=== PATIENT | female | born 1940 | race American Indian/Alaskan Native ===

== ENCOUNTER 2018-12-28 12:33 | Emergency (ER) | payer MEDICARE ==
--- NOTE | 2018-12-28 13:25 | Event Note ---
ED Screening Note Date of service: 12/28/18 Time: 13:20 ED Screening Note: This is a 78 y.o. F. that presents to the ER for combative behavior. Patient peggyece states she received a text this morning around 0400 from her personal shelter because she was combative and confused. PMH short term memory loss, subarachnoid hemorrhage with shunt, depression, HLD Currently taking antibiotics for a UTI. Patient niece states she is taking aricept but never diagnosed with alzheimer's. States the family is at a loss because they have changed facilities 5 times in 1 year. The personal care facility states she can't return because they can't take care of her. This initial assessment/diagnostic orders/clinical plan/treatment(s) is/are subject to change based on patients health status, clinical progression and re- assessment by fellow clinical providers in the ED. Further treatment and workup at subsequent clinical providers discretion. Patient/guardian urged not to elope from the ED as their condition may be serious if not clinically assessed and managed. Initial orders include: Labs
[2018-12-28 13:56] LABS: Basophils % (Auto) 0.3 % (0.0-1.8); Eosinophils # (Auto) 0.1 K/mm3 (0.0-0.4); Eosinophils % (Auto) 1.9 % (0.0-4.3); Hemoglobin 11.4 gm/dl (10.1-14.3); Lymphocytes # (Auto) 1.6 K/mm3 (1.2-5.4); Lymphocytes % (Auto) 33.8 % (13.4-35.0); Mean Corpuscular HGB Conc 33 % (30-34); Mean Corpuscular Volume 92 fl (79-97); Monocytes # (Auto) 0.7 K/mm3 (0.0-0.8); Monocytes % (Auto) 13.4 % (0.0-7.3); Platelet Count 176 K/mm3 (140-440); Red Blood Count 3.82 M/mm3 (3.65-5.03); Red Cell Distribution Width 14.6 % (13.2-15.2)
[2018-12-28 14:10] LABS: BUN/Creatinine Ratio 13; Blood Urea Nitrogen 12 mg/dL (7-17); Calcium 8.9 mg/dL (8.4-10.2); Hemolysis Index 3
[2018-12-28 14:28] LABS: Creatine Kinase MB 1.7 ng/mL (0.0-4.0)
[2018-12-28 14:29] LABS: Alanine Aminotransferase 11 units/L (7-56); Albumin 4.3 g/dL (3.9-5)
[2018-12-28 14:30] LABS: Bilirubin,Direct < 0.2 mg/dL (0-0.2)
--- NOTE | 2018-12-28 15:26 | Cat Scan Report ---
CT HEAD WITHOUT CONTRAST INDICATION / CLINICAL INFORMATION: Aberrant behavior. FARM HELPER shunt patient.. TECHNIQUE: All CT scans at this location are performed using CT dose reduction for ALARA by means of automated e xposure control. COMPARISON: None available. FINDINGS: HEMORRHAGE: No evidence of intracranial hemorrhage or extra-axial fluid collection. EXTRA-AXIAL SPACES: Cortical sulci, sylvian fissures and basilar cisterns have an unremarkable appear ance. VENTRICULAR SYSTEM: The ventricular system is of normal size and configuration given the patient's ag e of 78 years. A right-sided parietal ventriculoperitoneal shunt catheter is demonstrated. The cathet er enters the posterior body of the right lateral ventricle and terminates with tip just anterior to the frontal horn of the right lateral ventricle. There is no indication of hydrocephalus. There is no evidence of shunt catheter malfunction. CEREBRAL PARENCHYMA: There is an area of encephalomalacia in the right parietal region. This may refl ect the sequelae of remote infarction or other old brain injury. The ventriculoperitoneal shunt sierra ter traverses this region. No additional areas of abnormal brain parenchymal attenuation are identifi ed. A small dystrophic calcification is observed in the right frontal lobe surrounded by small area o f encephalomalacia reflecting sequelae of remote brain injury. MIDLINE SHIFT OR HERNIATION: There is no mass effect. CEREBELLUM / BRAINSTEM: Brainstem and cerebellum have an unremarkable appearance. INTRACRANIAL VESSELS: Calcified atherosclerotic plaque is seen along the course of the cavernous segm ents of both internal carotid arteries. ORBITS: visualized portions of the orbits have an unremarkable appearance. SOFT TISSUES of HEAD: No significant abnormality. CALVARIUM: There is a small jovanna hole in the posterior parietal region on the right secondary to FARM HELPER s malagon catheter. Evaluation of bone windows reveals no additional abnormalities. PARANASAL SINUSES / MASTOID AIR CELLS: Paranasal sinuses are free from inflammatory mucosal disease. Mastoid air cells have an unremarkable appearance.. IMPRESSION: 1. Right parietal ventriculoperitoneal shunt catheter in satisfactory position. No indication of shun t catheter malfunction. No evidence of hydrocephalus. 2. 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 3. No acute intracranial abnormality. Signer Name: Augusto العراقي MD Signed: 12/28/2018 3:21 PM Workstation Name: [facility] [email or web address]
[2018-12-28] MEDS ORDERED: POTASSIUM CHLORIDE ER 20 MEQ TAB PO ONE (16:14)
--- NOTE | 2018-12-28 16:14 | Emergency Department Report ---
ED Psych HPI - General Chief Complaint: Psych Stated Complaint: JACK BAUGH Time Seen by Provider: 12/28/18 13:20 Source: patient Mode of arrival: Ambulatory - History of Present Illness Initial Comments: [id number] female who is brought in by family members because she has had err atic behavior and her assisted living situation. The patient was living with the daughter and her behavior became to have recurrent for her to stay with them particularly unmonitored. The daughter had a friend that had a longterm. The patient was transferred to the longterm. However this week she started wandering going into the street and telling police that somebody had stolen her TV. The daughter tells me that the patient has had a recent evaluation at the [place] facility but no CT scan of her head. She has pre-existing ELECTRIC CRANE OPERATOR shunt which was placed after she had a subarachnoid hemorrhage. The daughter states that the patient has intermittent erratic behavior. She describes paranoid ideation. She does not describe hallucinosis. Patient is now wandering intermittently. However she states as she was at [place] the patient is now contained and behaving reasonably. She has never been hospitalized in a psychiatric facility. She has been diagnosed with dementia and depression. She's been previously placed on Zoloft, trazodone and doxepin. She has no specific complaints at this time. She is aware of her surroundings. Complaint: other -: week(s) Associated Psychiatric Symptoms: delusions, other History of same: Yes Quality: intermittent Improves With: none Worsens With: none Context: other Associated Symptoms: denies other symptoms Treatments Prior to Arrival: none - Related Data Allergies Allergy/AdvReac Type Severity Reaction Status Date / Time No Known Allergies Allergy Verified 12/28/18 13:26 ED Review of Systems ROS: Stated complaint: JACK BAUGH Other details as noted in HPI Constitutional: denies: chills, fever Eyes: denies: eye pain, eye discharge, vision change ENT: denies: ear pain, throat pain Respiratory: denies: cough, shortness of breath, wheezing Cardiovascular: denies: chest pain, palpitations Endocrine: no symptoms reported Gastrointestinal: denies: abdominal pain, nausea, diarrhea Genitourinary: denies: urgency, dysuria, discharge Musculoskeletal: denies: back pain, joint swelling, arthralgia Skin: denies: rash, lesions Neurological: denies: headache, weakness, paresthesias Psychiatric: as per HPI. denies: anxiety, depression Hematological/Lymphatic: denies: easy bleeding, easy bruising ED Past Medical Hx - Past Medical History Hx Dementia: Yes (BEHAVIOR) Additional medical history: UTI. SHORT TERM MEMORY PROBLEM. DECREASE APPETATE - Surgical History Additional Surgical History: BRAIN SURGERY - Social History Smoking Status: Never Smoker Substance Use Type: Alcohol ED Physical Exam - General Limitations: No Limitations General appearance: alert, in no apparent distress - Head Head exam: Present: normocephalic, other (cranial defect palpated with presence of ELECTRIC CRANE OPERATOR shunt) - Eye Eye exam: Present: normal appearance, PERRL, EOMI. Absent: scleral icterus - ENT ENT exam: Present: mucous membranes moist - Neck Neck exam: Present: normal inspection. Absent: tenderness, meningismus - Respiratory Respiratory exam: Present: normal lung sounds bilaterally. Absent: respiratory distress - Cardiovascular Cardiovascular Exam: Present: regular rate, normal rhythm. Absent: systolic murmur, diastolic murmur, rubs, gallop - GI/Abdominal GI/Abdominal exam: Present: soft, normal bowel sounds. Absent: distended, tenderness, guarding, rebound, rigid - Extremities Exam Extremities exam: Present: normal inspection - Back Exam Back exam: Present: normal inspection - Neurological Exam Neurological exam: Present: alert, oriented X3, CN II-XII intact, normal gait - Psychiatric Psychiatric exam: Present: normal mood, flat affect - Skin Skin exam: Present: warm, dry, intact, normal color. Absent: rash ED Course Vital Signs 12/28/18 13:21 Temperature 98.8 F Pulse Rate 85 Respiratory 16 Rate Blood Pressure 145/80 [Right] O2 Sat by Pulse 100 Oximetry - Reevaluation(s) Reevaluation #1: Mental health evaluation is pending. 12/28/18 16:15 12/28/18 16:15 Reevaluation #2: Discussed with Rell, mental health counselor. The patient has dementia with behavioral aberration. She has a bit of a paranoid psychosis. She will be [age]. She'll be transferred to a psychiatric facility. She is medically cleared for psychiatric hospitalization. 12/28/18 18:25 ED Medical Decision Making - Lab Data Result diagrams: 12/28/18 13:05 12/28/18 13:25 Laboratory Results - last 24 hr 12/28/18 12/28/18 12/28/18 13:05 13:25 13:25 WBC 4.9 RBC 3.82 Hgb 11.4 Hct 35.0 MCV 92 MCH 30 MCHC 33 RDW 14.6 Plt Count 176 Lymph % (Auto) 33.8 [place] % (Auto) 13.4 H Eos % (Auto) 1.9 Baso % (Auto) 0.3 Lymph # 1.6 [place] # 0.7 Eos # 0.1 Baso # 0.0 Seg Neutrophils % 50.6 Seg Neutrophils # 2.5 Sodium Potassium Chloride Carbon Dioxide Anion Gap BUN Creatinine Estimated GFR BUN/Creatinine Ratio Glucose Calcium Total Bilirubin Direct Bilirubin Indirect Bilirubin AST ALT Alkaline Phosphatase Total Creatine Kinase CK-MB (CK-2) CK-MB (CK-2) Rel Index Total Protein Albumin Albumin/Globulin Ratio Salicylates < 0.3 L Acetaminophen < 5.0 L Plasma/Serum Alcohol 12/28/18 12/28/18 12/28/18 13:25 13:25 13:25 WBC RBC Hgb Hct MCV MCH MCHC RDW Plt Count Lymph % (Auto) [place] % (Auto) Eos % (Auto) Baso % (Auto) Lymph # [place] # Eos # Baso # Seg Neutrophils % Seg Neutrophils # Sodium 141 Potassium 3.3 L Chloride 102.7 Carbon Dioxide 24 Anion Gap 18 BUN 12 Creatinine 0.9 Estimated GFR > 60 BUN/Creatinine Ratio 13 Glucose 84 Calcium 8.9 Total Bilirubin 0.30 Direct Bilirubin < 0.2 Indirect Bilirubin 0.1 AST 19 ALT 11 Alkaline Phosphatase 64 Total Creatine Kinase 104 CK-MB (CK-2) 1.7 CK-MB (CK-2) Rel Index 1.6 Total Protein 6.9 Albumin 4.3 Albumin/Globulin Ratio 1.7 Salicylates Acetaminophen Plasma/Serum Alcohol < 0.01 - Radiology Data Radiology results: report reviewed (CT head showed apparently functioning ELECTRIC CRANE OPERATOR shunt no signs of hydrocephalus. Encephalomalacia is present. No acute process.) Critical care attestation.: If time is entered above; I have spent that time in minutes in the direct care of this critically ill patient, excluding procedure time. ED Disposition Clinical Impression: Medical clearance for psychiatric admission, Paranoid psychosis Dementia Qualifiers: Dementia type: unspecified type Dementia behavioral disturbance: with behavio ral disturbance Qualified Code(s): F03.91 - Unspecified dementia with behavioral disturbance Disposition: DC/TX-65 PSY HOSP/PSY UNIT Is pt being admited?: No Does the pt Need Aspirin: No Condition: Stable Referrals: CEE CARNEY MD [Other] - 3-5 Days Time of Disposition: 18:26
[2018-12-28 17:53] LABS: Bilirubin,Urine NEG (Negative); Blood,Urine NEG (Negative); Color,Urine Yellow (Yellow); Mucus,Urine FEW /HPF; Protein,Urine <15 mg/dL mg/dL (Negative); Urobilinogen,Urine < 2.0 mg/dL (<2.0); WBC,Urine < 1.0 /HPF (0.0-6.0)
[2018-12-28 18:16] LABS: Amphetamine Screen,Urine PRESUMPTIVE NEGATIVE; Benzodiazepines Screen,Urine PRESUMPTIVE NEGATIVE; Cannabinoid Screen,Urine PRESUMPTIVE NEGATIVE; Cocaine Screen,Urine PRESUMPTIVE NEGATIVE; Methadone Screen,Urine PRESUMPTIVE NEGATIVE; Opiate Screen,Urine PRESUMPTIVE NEGATIVE
[2018-12-28] MEDS ORDERED: ALUM-MAG HYDROXIDE-SIMETHICONE 200-200-20MG/5ML ORAL LIQD 30 ML PO PRN (18:27)
[2018-12-28] MEDS ORDERED: MAGNESIUM HYDROXIDE (MOM) ORAL LIQD UDC PO PRN (18:27)
[2018-12-28] MEDS ORDERED: ACETAMINOPHEN 325 MG TAB PO PRN (18:27)
[2018-12-29] MEDS ORDERED: ZOLPIDEM 5 MG TAB ONE (00:32)
[2018-12-29] MEDS ORDERED: ZOLPIDEM 5 MG TAB PO ONE (01:00)
[2018-12-29 08:14] VITALS: BP 127/62
== END 2018-12-29 11:30 ==
LOC: ED 12:33 → EEVIPCON 12:33 → ED 12-29 11:30
DX: F03.90 Unspecified dementia, unspecified severity, without behavioral disturbance, psychotic disturbance, mood disturbance, and anxiety (principal); Z98.890 Other specified postprocedural states
CPT/HCPCS: 36415; 70450; 80048; 80076; 80307; 80320; 81001; 82550; 82553; 85025; G0480

== ENCOUNTER 2018-12-29 08:00 | Inpatient (IN) | payer MEDICARE ==
[2018-12-29] MEDS ORDERED: LORazepam 2 MG/ML VIAL IM PRN (08:36)
[2018-12-29] MEDS ORDERED: HALOPERIDOL LACTATE 5 MG/1 ML INJ IM PRN (08:36)
--- NOTE | 2018-12-29 12:46 | Consultation ---
History of Present Illness - Reason for Consult Consult date: 12/29/18 Reason for consult: mental health evaluation Requesting physician: JP WALKER - Chief Complaint Chief complaint: This is a 78 y/o female that presents today for evaluation. She has was brought in by her caregiver for evaluation She reportedly had become violent and aggessive towards her caregiver. Today she is somewhat disorganized and reluctant to discuss anything with me today. She is very tearful and paranoid at this time. She does deny any recreational drug use and any auditory or visual hallucination. She also denies SI and HI. Medications and Allergies Allergies Allergy/AdvReac Type Severity Reaction Status Date / Time No Known Allergies Allergy Verified 12/28/18 13:26 Active Meds: Active Medications Haloperidol (Haldol) 5 mg PO Q6H PRN PRN Reason: Agitation Haloperidol Lactate (Haldol) 5 mg IM Q6H PRN PRN Reason: Agitation Lorazepam (Ativan) 1 mg PO Q6H PRN PRN Reason: Agitation Lorazepam (Ativan) 1 mg IM Q6H PRN PRN Reason: Agitation Mental Status Exam - Exam Affect: anxious, agitated Mood: congruent with affect Thought content: paranoia Thought Process: Disorganized Perceptions: other Speech: slow Concentration: distractible Motor activity: restless Level of consciousness: alert, confused Memory: Recent Impaired Interaction: guarded Results All other labs normal. Assessment and Plan Assessment and plan: Assessment and Plan Continue current 1013 patient is stable Patient has Dementia with psychosis Will refer for inpatient treatment Will Staff with MD Darío
[2018-12-29] MEDS: HALOPERIDOL 5 MG TAB PO PRN ×2 (14:28→20:52)
[2018-12-29 18:50] LABS: Chol/HDL Ratio 2.73 %
[2018-12-29] MEDS ORDERED: ACETAMINOPHEN 325 MG TAB PO PRN (20:05)
--- NOTE | 2018-12-30 11:52 | History and Physical Report ---
GP History & Physical - History of Present Illness Date of admission: 12/29/18 Date of Examination: 12/30/18 Reason for Admission: Danger to self, Danger to others, Psychopathology interference, Unable to care for self Chief Complaint: I don't know why I am here History of Present Illness: The patient is a 78 yo woman from a [facility] with a history of dementia, depression, dyslipidemia and ICH who presented to [facility] ED for combative behavior. She is confused, scores 14/30 in MMSE, states that she does not know why she is in the hospital. Per medical records, the family is at a loss because they have changed facilities 5 times in 1 year. The personal care facility states she can't return because they can't take care of her. Patient was currently taking antibiotics for UTI per chart. Chart review shows that she was irritable at home, rearranges furniture, not sleeping good, combative and wandering in to the street. Legal Status: Involuntary Patient Problems: Current Active Problems Major neurocognitive disorder due to Alzheimer's disease, with behavioral disturbance (Acute) Reaction to Hospitalization: Resistant Substance History - Substance History Drug Use: none Hx Tobacco Use: No Alcohol Use: No Past psychiatric history - Past Medical History Past Medical History: hyperlipidemia, other (ICH) - past Psychiatric treatment and history Psych: Depression psychiatric treatment history: Dementia Review of Systems ROS unobtainable: due to mental status Results - Results Labs/Vitals: Laboratory Last Values POC Glucose 73 (70-105) 12/29/18 16:23 Hemoglobin A1c 5.0 % (4-6) 12/29/18 18:16 Triglycerides 116 mg/dL (2-149) 12/29/18 18:16 Cholesterol 183 mg/dL (50-199) 12/29/18 18:16 LDL Cholesterol Direct 104 mg/dL (50-130) 12/29/18 18:16 HDL Cholesterol 67 mg/dL (40-59) H 12/29/18 18:16 Cholesterol/HDL Ratio 2.73 % 12/29/18 18:16 Last Vital Signs Temp 97.7 F 12/30/18 10:00 Pulse 71 12/30/18 10:00 Resp 18 12/29/18 22:00 BP 116/40 12/30/18 10:00 Pulse Ox 100 12/30/18 10:00 Physical Examination - Constitutional Vitals: Vital Signs Temp Pulse Resp BP Pulse Ox 97.7 F 71 18 116/40 100 12/30/18 10:00 12/30/18 10:00 12/29/18 22:00 12/30/18 10:00 12/30/18 10:00 Temperature -Last 24 Hours Temperature 97.7 F Temperature 98.1 F General appearance: Present: no acute distress, well-nourished, disheveled - EENT Eyes: Present: PERRL, EOM intact ENT: hearing intact, clear oral mucosa - Neck Neck: Present: supple, normal ROM - Respiratory Respiratory effort: normal Mental Status Exam - Vital signs Last Vital Signs Temp 97.7 F 12/30/18 10:00 Pulse 71 12/30/18 10:00 Resp 18 12/29/18 22:00 BP 116/40 12/30/18 10:00 Pulse Ox 100 12/30/18 10:00 - Exam Orientation: place Affect: depressed, anxious Mood: congruent with affect Thought Process: Disorganized Perceptions: none Speech: paucity Concentration: distractible Motor activity: restless Level of consciousness: alert Memory: Recent Impaired, Remote Impaired Sleep Symptoms: Insomnia Interaction: cooperative Mini mental status exam(if necessary): 0-17 Assessment and Plan - Psychiatric problem (1) Major neurocognitive disorder due to Alzheimer's disease, with behavioral disturbance Current Visit: Yes Status: Acute plan to address problem: Patient will be admitted for inpatient psychiatric evaluation, medication adjustment and close monitoring The patient's behavior, mood, sleep and appetite will be closely monitored. Patient will be enrolled in individual and group therapeutic sessions and encouraged to attend. Patient will be provided with a safe and structured environment. Patient's physical health needs will be addressed by the Hospitalist. Social Assessment will be completed and the Fountain Worker will work with patient and family to ensure a suitable and safe disposition Medication adjustment will be made as clinically indicated Physician Certification - Certification Statement Physician Certification Statement: This is an acknowledgement statement that BRODY KRISHNAN is a 78 year old F who requires inpatient psychiatric admission for treatment which could reasonably be expected to improve the patient's condition for behavioral disturbance Estimated period of time patient will need to remain in the hospital: 10 days Plan for post-hospital care: Out-patient care Medications & Allergies - Medications Allergies/Adverse Reactions: Allergies No Known Allergies Allergy (Verified 12/28/18 13:26) Home Medications: Home Medications Medication Instructions Recorded Confirmed Last Taken Type AtorvaSTATin 10 mg PO HS 12/29/18 12/29/18 Unknown History Ciprofloxacin TAB 500 mg PO BID 12/29/18 12/29/18 Unknown History Doxepin [SINEquan] 10 mg PO DAILY MDD unknown 12/29/18 12/29/18 Unknown History Letrozole 2.5 mg PO DAILY 12/29/18 12/29/18 Unknown History Melatonin 3 mg Tablet 3 mg PO HS 12/29/18 12/29/18 Unknown History Sertraline 100 gm PO DAILY 12/29/18 12/29/18 Unknown History Active Medications: Generic Name Dose Route Start Last Admin Trade Name Freq PRN Reason Stop Dose Admin Acetaminophen 650 mg 12/29/18 20:05 12/29/18 20:51 Tylenol PO 650 mg Q6H PRN Administration Pain, Mild (1-3) Atorvastatin Calcium 10 mg 12/30/18 22:00 12/30/18 22:02 Lipitor PO 10 mg QHS ELY Administration Haloperidol 5 mg 12/29/18 08:36 12/30/18 22:01 Haldol PO 5 mg Q6H PRN Administration Agitation Haloperidol Lactate 5 mg 12/29/18 08:36 Haldol IM Q6H PRN Agitation Levofloxacin 500 mg 12/30/18 16:00 12/30/18 17:19 Levaquin PO 500 mg Q24HR ELY Administration Lorazepam 1 mg 12/29/18 08:36 12/30/18 22:01 Ativan PO 1 mg Q6H PRN Administration Agitation Lorazepam 1 mg 12/29/18 08:36 Ativan IM Q6H PRN Agitation Melatonin 5 mg 12/30/18 22:00 12/30/18 22:01 Melatonin PO 5 mg QHS ELY Administration Miscellaneous Medication 2.5 mg 12/30/18 12:30 Letrozole PO DAILY ELY Sertraline HCl 100 mg 12/30/18 15:00 12/30/18 15:28 Zoloft PO 100 mg QDAY ELY Administration
[2018-12-30] MEDS ORDERED: SERTRALINE PO SCH (12:00)
--- NOTE | 2018-12-30 14:09 | Consultation ---
History of Present Illness - Reason for Consult Consult date: 12/30/18 - History of Present Illness Patient was seen and examined. Follow-up on current diagnosis. No overnight events reported to me. Patient denies any chest pain, shortness breath, nausea/vomiting or severe headaches. Imaging, nursing note, chart, labs and old chart reviewed. Discussed with patient. PMH: as hpi PSH: Brain surgery for ICH, ?ROLL FORMER shunt SH: ex smoker quit years ago, no alcohol or drug abuse FH: she denies ROS unable to obtain completely Medications and Allergies Allergies Allergy/AdvReac Type Severity Reaction Status Date / Time No Known Allergies Allergy Verified 12/28/18 13:26 Home Medications Medication Instructions Recorded Confirmed Last Taken Type AtorvaSTATin 10 mg PO HS 12/29/18 12/29/18 Unknown History Ciprofloxacin TAB 500 mg PO BID 12/29/18 12/29/18 Unknown History Doxepin [SINEquan] 10 mg PO DAILY MDD unknown 12/29/18 12/29/18 Unknown History Letrozole 2.5 mg PO DAILY 12/29/18 12/29/18 Unknown History Melatonin 3 mg Tablet 3 mg PO HS 12/29/18 12/29/18 Unknown History Sertraline 100 gm PO DAILY 12/29/18 12/29/18 Unknown History Active Meds: Active Medications Acetaminophen (Tylenol) 650 mg PO Q6H PRN PRN Reason: Pain, Mild (1-3) Last Admin: 12/29/18 20:51 Dose: 650 mg Documented by: Atorvastatin Calcium (Lipitor) 10 mg PO QHS ELY Haloperidol (Haldol) 5 mg PO Q6H PRN PRN Reason: Agitation Last Admin: 12/29/18 20:52 Dose: 5 mg Documented by: Haloperidol Lactate (Haldol) 5 mg IM Q6H PRN PRN Reason: Agitation Levofloxacin (Levaquin) 500 mg PO Q24HR ELY Lorazepam (Ativan) 1 mg PO Q6H PRN PRN Reason: Agitation Lorazepam (Ativan) 1 mg IM Q6H PRN PRN Reason: Agitation Miscellaneous Medication (Letrozole) 2.5 mg PO DAILY ELY Miscellaneous Medication (Melatonin 3 Mg Tablet) 3 mg PO HS ELY Sertraline HCl (Zoloft) 100 mg PO QDAY ELY Exam - Physical Exam Narrative exam: Gen: WDWN, NAD, Awake, Alert, Orientated x 1 HEENT: NCAT, EOMI, PERRL, OP Clear Neck: supple, no adenopathy, no thyromegaly, no JVD CVS/Heart: RRR, normal S1S2, pulses present bilaterally Chest/Lungs: CTA B, Symmetrical chest expansion, good air entry bilaterally GI/Abdomen: soft, NTND, good bowel sounds, no guarding or rebound /Bladder: no suprapubic tenderness, no CVA or paraspinal tenderness Extermity/Skin: no c/c/e, no obvious rash MSK: FROM x 4 Neuro: CN 2-12 grossly intact, no new focal deficits Psych: calm but confused, started crying - Constitutional Vitals: Temp Pulse Resp BP Pulse Ox 97.7 F 71 18 116/40 100 12/30/18 10:00 12/30/18 10:00 12/29/18 22:00 12/30/18 10:00 12/30/18 10:00 Results - Labs Labs: Abnormal lab results 12/29/18 Range/Units 18:16 HDL Cholesterol 67 H (40-59) mg/dL Assessment and Plan Patient is a 78 yo woman from a Personal Longterm with a history of dementia, depression, dyslipidemia and ICH who presented to [facility] ED for combative behavior. She is very confused with labile emotions. She is a poor history due to the confusion. She does not answer most questions, she started crying. She says she lives with her and he doesn't know where she is. The family is at a loss because they have changed facilities 5 times in 1 year per chart. The personal care facility states she can't return because they can't take care of her. Patient was currently taking antibiotics for UTI per chart Acute metabolic encephalopathy: check UA Hypokalemia: repeat bmp Advance Dementia with behavior disorder: here with psych UTI by history: check UA
[2018-12-30] MEDS ORDERED: MELATONIN 5 MG TAB PO PRN (15:12)
[2018-12-30] MEDS: SERTRALINE 100 MG TAB PO SCH (15:28)
[2018-12-30] MEDS: levoFLOXacin 500 MG TAB PO SCH (17:19)
[2018-12-30 20:55] LABS: Bilirubin,Urine NEG (Negative); Blood,Urine NEG (Negative); Color,Urine Yellow (Yellow); Mucus,Urine FEW /HPF; Protein,Urine <15 mg/dL mg/dL (Negative); Urobilinogen,Urine < 2.0 mg/dL (<2.0)
[2018-12-30] MEDS ORDERED: CIPROFLOXACIN 500 MG PO SCH (22:00)
[2018-12-30] MEDS ORDERED: NON-FORMULARY EACH (Atorvastatin 10 MG) PO SCH (22:00)
[2018-12-30] MEDS ORDERED: MELATONIN 3 MG PO SCH (22:00)
[2018-12-30] MEDS: LORazepam 1 MG TAB PO PRN (22:01)
[2018-12-30] MEDS: MELATONIN 5 MG TAB PO SCH (22:01)
[2018-12-30] MEDS: HALOPERIDOL 5 MG TAB PO PRN (22:01)
[2018-12-31 08:45] LABS: Hematocrit 31.3 % (30.3-42.9); Hemoglobin 10.4 gm/dl (10.1-14.3); Mean Corpuscular HGB Conc 33 % (30-34); Mean Corpuscular Volume 91 fl (79-97); Platelet Count 152 K/mm3 (140-440); Red Blood Count 3.42 M/mm3 (3.65-5.03); Red Cell Distribution Width 14.3 % (13.2-15.2)
[2018-12-31 09:01] LABS: BUN/Creatinine Ratio 11; Blood Urea Nitrogen 10 mg/dL (7-17); Calcium 8.5 mg/dL (8.4-10.2); Hemolysis Index 1
[2018-12-31] MEDS: SERTRALINE 100 MG TAB PO SCH (09:20)
[2018-12-31] MEDS: levoFLOXacin 500 MG TAB PO SCH (09:20)
--- NOTE | 2018-12-31 11:31 | Progress Note ---
Subjective Date of service: 12/31/18 Principal diagnosis: Dementia with behavioral disturbance Subjective Comment: Patient is confused, unable to care for self. She is withdrawn and not eating well. MSE Orientation: place Affect: depressed, anxious Mood: congruent with affect Thought Process: Disorganized Perceptions: none Speech: paucity Concentration: distractible Motor activity: restless Level of consciousness: alert Memory: Recent Impaired, Remote Impaired Sleep Symptoms: Insomnia Interaction: cooperative Objective - Criteria for Continued Treatment Criteria for Continued Treatment: Improving Level of Functioning, Stablizing Level of Functioning, Improving Emotional/Socia - Objective Observation Participation Level: Minimal Reason(s) For Not Participating: Unable Assessment and Plan - Patient Problems (1) Major 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 Patient will be enrolled in individual and group therapeutic sessions and encouraged to attend. Patient will be provided with a safe and structured environment. Patient's physical health needs will be addressed by the Hospitalist. Social Assessment will be completed and the Projection Engineer will work with patient and family to ensure a suitable and safe disposition Medication adjustment will be made as clinically indicated Medications & Allergies - Medications Allergies/Adverse Reactions: Allergies No Known Allergies Allergy (Verified 12/28/18 13:26) Home Medications: Home Medications Medication Instructions Recorded Confirmed Last Taken Type AtorvaSTATin 10 mg PO HS 12/29/18 12/29/18 Unknown History Ciprofloxacin TAB 500 mg PO BID 12/29/18 12/29/18 Unknown History Doxepin [SINEquan] 10 mg PO DAILY MDD unknown 12/29/18 12/29/18 Unknown History Letrozole 2.5 mg PO DAILY 12/29/18 12/29/18 Unknown History Melatonin 3 mg Tablet 3 mg PO HS 12/29/18 12/29/18 Unknown History Sertraline 100 gm PO DAILY 12/29/18 12/29/18 Unknown History Active Medications: Generic Name Dose Route Start Last Admin Trade Name Freq PRN Reason Stop Dose Admin Acetaminophen 650 mg 12/29/18 20:05 12/29/18 20:51 Tylenol PO 650 mg Q6H PRN Administration Pain, Mild (1-3) Atorvastatin Calcium 10 mg 12/30/18 22:00 12/30/18 22:02 Lipitor PO 10 mg QHS ELY Administration Haloperidol 5 mg 12/29/18 08:36 12/30/18 22:01 Haldol PO 5 mg Q6H PRN Administration Agitation Haloperidol Lactate 5 mg 12/29/18 08:36 Haldol IM Q6H PRN Agitation Levofloxacin 500 mg 12/30/18 16:00 12/31/18 09:20 Levaquin PO 500 mg Q24HR ELY Administration Lorazepam 1 mg 12/29/18 08:36 12/30/18 22:01 Ativan PO 1 mg Q6H PRN Administration Agitation Lorazepam 1 mg 12/29/18 08:36 Ativan IM Q6H PRN Agitation Melatonin 5 mg 12/30/18 22:00 12/30/18 22:01 Melatonin PO 5 mg QHS ELY Administration Miscellaneous Medication 2.5 mg 12/30/18 12:30 Letrozole PO DAILY ELY Sertraline HCl 100 mg 12/30/18 15:00 12/31/18 09:20 Zoloft PO 100 mg QDAY ELY Administration
[2018-12-31] MEDS: MELATONIN 5 MG TAB PO SCH (21:15)
[2018-12-31] MEDS: HALOPERIDOL 5 MG TAB PO PRN (21:15)
[2018-12-31] MEDS: LETROZOLE 2.5 MG PO SCH ×3 (22:47→23:01)
[2019-01-01] MEDS: SERTRALINE 100 MG TAB PO SCH (09:17)
[2019-01-01] MEDS: levoFLOXacin 500 MG TAB PO SCH (09:17)
[2019-01-01] MEDS: LETROZOLE 2.5 MG PO SCH (09:17)
--- NOTE | 2019-01-01 11:44 | Progress Note ---
Subjective Date of service: 01/01/19 Principal diagnosis: Dementia with behavioral disturbance Subjective Comment: Patient is too sleepy this morning. She is confused, unable to care for self. She is withdrawn and not eating well. MSE Orientation: place Affect: depressed, anxious Mood: congruent with affect Thought Process: Disorganized Perceptions: none Speech: paucity Concentration: distractible Motor activity: restless Level of consciousness: alert Memory: Recent Impaired, Remote Impaired Sleep Symptoms: Insomnia Interaction: cooperative Objective - Criteria for Continued Treatment Criteria for Continued Treatment: Improving Level of Functioning, Stablizing Level of Functioning, Improving Emotional/Socia - Objective Observation Participation Level: Minimal Assessment and Plan - Patient Problems (1) Major 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 Patient will be enrolled in individual and group therapeutic sessions and encouraged to attend. Patient will be provided with a safe and structured environment. Patient's physical health needs will be addressed by the Hospitalist. Social Assessment will be completed and the Social Organization Professor will work with patient and family to ensure a suitable and safe disposition Medication adjustment will be made as clinically indicated Medications & Allergies - Medications Allergies/Adverse Reactions: Allergies No Known Allergies Allergy (Verified 12/28/18 13:26) Home Medications: Home Medications Medication Instructions Recorded Confirmed Last Taken Type AtorvaSTATin 10 mg PO HS 12/29/18 12/29/18 Unknown History Ciprofloxacin TAB 500 mg PO BID 12/29/18 12/29/18 Unknown History Doxepin [SINEquan] 10 mg PO DAILY MDD unknown 12/29/18 12/29/18 Unknown History Letrozole 2.5 mg PO DAILY 12/29/18 12/29/18 Unknown History Melatonin 3 mg Tablet 3 mg PO HS 12/29/18 12/29/18 Unknown History Sertraline 100 gm PO DAILY 12/29/18 12/29/18 Unknown History Active Medications: Generic Name Dose Route Start Last Admin Trade Name Freq PRN Reason Stop Dose Admin Acetaminophen 650 mg 12/29/18 20:05 12/29/18 20:51 Tylenol PO 650 mg Q6H PRN Administration Pain, Mild (1-3) Atorvastatin Calcium 10 mg 12/30/18 22:00 12/31/18 21:15 Lipitor PO 10 mg QHS ELY Administration Haloperidol 5 mg 12/29/18 08:36 12/31/18 21:15 Haldol PO 5 mg Q6H PRN Administration Agitation Haloperidol Lactate 5 mg 12/29/18 08:36 Haldol IM Q6H PRN Agitation Levofloxacin 500 mg 12/30/18 16:00 01/01/19 09:17 Levaquin PO 500 mg Q24HR ELY Administration Lorazepam 1 mg 12/29/18 08:36 12/30/18 22:01 Ativan PO 1 mg Q6H PRN Administration Agitation Lorazepam 1 mg 12/29/18 08:36 Ativan IM Q6H PRN Agitation Melatonin 5 mg 12/30/18 22:00 12/31/18 21:15 Melatonin PO 5 mg QHS ELY Administration Miscellaneous Medication 2.5 mg 12/31/18 20:00 01/01/19 09:17 Letrozole PO 2.5 mg DAILY ELY Administration Sertraline HCl 100 mg 12/30/18 15:00 01/01/19 09:17 Zoloft PO 100 mg QDAY ELY Administration
[2019-01-01] MEDS: MELATONIN 5 MG TAB PO SCH (21:10)
--- NOTE | 2019-01-02 09:54 | Progress Note ---
Subjective Date of service: 01/02/19 Principal diagnosis: Dementia with behavioral disturbance Subjective Comment: Patient is confused, unable to care for self. She is withdrawn and not eating well. MSE Orientation: place Affect: depressed, anxious Mood: congruent with affect Thought Process: Disorganized Perceptions: none Speech: paucity Concentration: distractible Motor activity: restless Level of consciousness: alert Memory: Recent Impaired, Remote Impaired Sleep Symptoms: Insomnia Interaction: cooperative Objective - Criteria for Continued Treatment Criteria for Continued Treatment: Improving Level of Functioning, Stablizing Level of Functioning, Improving Emotional/Socia - Objective Observation Participation Level: Minimal Reason(s) For Not Participating: Unable Assessment and Plan - Patient Problems (1) Major 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 Patient will be enrolled in individual and group therapeutic sessions and encouraged to attend. Patient will be provided with a safe and structured environment. Patient's physical health needs will be addressed by the Hospitalist. Social Assessment will be completed and the Vacation Sales Advisor will work with patient and family to ensure a suitable and safe disposition Medication adjustment will be made as clinically indicated
[2019-01-02] MEDS: SERTRALINE 100 MG TAB PO SCH (12:38)
[2019-01-02] MEDS: levoFLOXacin 500 MG TAB PO SCH (12:38)
[2019-01-02] MEDS: LORazepam 1 MG TAB PO PRN (21:11)
[2019-01-02] MEDS: HALOPERIDOL 5 MG TAB PO PRN (21:11)
[2019-01-02] MEDS: MELATONIN 5 MG TAB PO SCH (21:11)
[2019-01-03] MEDS: LETROZOLE 2.5 MG PO SCH ×2 (10:39→19:59)
[2019-01-03] MEDS: SERTRALINE 100 MG TAB PO SCH (10:39)
[2019-01-03] MEDS: levoFLOXacin 500 MG TAB PO SCH (10:39)
[2019-01-03] MEDS: HALOPERIDOL 5 MG TAB PO PRN (20:25)
[2019-01-03] MEDS: MELATONIN 5 MG TAB PO SCH (21:08)
[2019-01-04] MEDS: LETROZOLE 2.5 MG PO SCH (09:21)
[2019-01-04] MEDS: levoFLOXacin 500 MG TAB PO SCH (09:22)
[2019-01-04] MEDS: SERTRALINE 100 MG TAB PO SCH (09:22)
[2019-01-04] MEDS: MELATONIN 5 MG TAB PO SCH (21:20)
[2019-01-05] MEDS: LETROZOLE 2.5 MG PO SCH (10:55)
[2019-01-05] MEDS: SERTRALINE 100 MG TAB PO SCH (10:55)
[2019-01-05] MEDS: levoFLOXacin 500 MG TAB PO SCH (14:02)
--- NOTE | 2019-01-05 17:23 | Progress Note ---
Subjective Date of service: 01/04/19 Principal diagnosis: Dementia with behavioral disturbance Subjective Comment: Patient is confused, unable to care for self. She is withdrawn and not eating well. MSE Orientation: place Affect: depressed, anxious Mood: congruent with affect Thought Process: Disorganized Perceptions: none Speech: paucity Concentration: distractible Motor activity: restless Level of consciousness: alert Memory: Recent Impaired, Remote Impaired Sleep Symptoms: Insomnia Interaction: cooperative Objective - Criteria for Continued Treatment Criteria for Continued Treatment: Reducing Isolative Behaviors, Stablizing Level of Functioning, Improving Emotional/Socia - Objective Observation Participation Level: Minimal Reason(s) For Not Participating: Unable Assessment and Plan - Patient Problems (1) Major 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 Patient will be enrolled in individual and group therapeutic sessions and encouraged to attend. Patient will be provided with a safe and structured environment. Patient's physical health needs will be addressed by the Hospitalist. Social Assessment will be completed and the Operations Manager Station will work with patient and family to ensure a suitable and safe disposition Medication adjustment will be made as clinically indicated
--- NOTE | 2019-01-05 17:24 | Progress Note ---
Subjective Date of service: 01/03/19 Principal diagnosis: Dementia with behavioral disturbance Subjective Comment: Patient is confused, unable to care for self. She is withdrawn and not eating well. MSE Orientation: place Affect: depressed, anxious Mood: congruent with affect Thought Process: Disorganized Perceptions: none Speech: paucity Concentration: distractible Motor activity: restless Level of consciousness: alert Memory: Recent Impaired, Remote Impaired Sleep Symptoms: Insomnia Interaction: cooperative Objective - Criteria for Continued Treatment Criteria for Continued Treatment: Reducing Isolative Behaviors, Stablizing Level of Functioning, Improving Emotional/Socia - Objective Observation Participation Level: Minimal Assessment and Plan - Patient Problems (1) Major 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 Patient will be enrolled in individual and group therapeutic sessions and encouraged to attend. Patient will be provided with a safe and structured environment. Patient's physical health needs will be addressed by the Hospitalist. Social Assessment will be completed and the Hand Winder will work with patient and family to ensure a suitable and safe disposition Medication adjustment will be made as clinically indicated
--- NOTE | 2019-01-05 17:25 | Progress Note ---
Subjective Date of service: 01/05/19 Principal diagnosis: Dementia with behavioral disturbance Subjective Comment: Patient is confused, unable to care for self. She is withdrawn and not eating well. MSE Orientation: place Affect: depressed, anxious Mood: congruent with affect Thought Process: Disorganized Perceptions: none Speech: paucity Concentration: distractible Motor activity: restless Level of consciousness: alert Memory: Recent Impaired, Remote Impaired Sleep Symptoms: Insomnia Interaction: cooperative Objective - Criteria for Continued Treatment Criteria for Continued Treatment: Improving Level of Functioning, Stablizing Level of Functioning, Improving Emotional/Socia - Objective Observation Participation Level: Minimal Assessment and Plan - Patient Problems (1) Major 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 Patient will be enrolled in individual and group therapeutic sessions and encouraged to attend. Patient will be provided with a safe and structured environment. Patient's physical health needs will be addressed by the Hospitalist. Social Assessment will be completed and the Stunt Man will work with patient and family to ensure a suitable and safe disposition Medication adjustment will be made as clinically indicated Medications & Allergies - Medications Allergies/Adverse Reactions: Allergies No Known Allergies Allergy (Verified 12/28/18 13:26) Home Medications: Home Medications Medication Instructions Recorded Confirmed Last Taken Type AtorvaSTATin 10 mg PO HS 12/29/18 12/29/18 Unknown History Ciprofloxacin TAB 500 mg PO BID 12/29/18 12/29/18 Unknown History Doxepin [SINEquan] 10 mg PO DAILY MDD unknown 12/29/18 12/29/18 Unknown History Letrozole 2.5 mg PO DAILY 12/29/18 12/29/18 Unknown History Melatonin 3 mg Tablet 3 mg PO HS 12/29/18 12/29/18 Unknown History Sertraline 100 gm PO DAILY 12/29/18 12/29/18 Unknown History Active Medications: Generic Name Dose Route Start Last Admin Trade Name Freq PRN Reason Stop Dose Admin Acetaminophen 650 mg 12/29/18 20:05 12/29/18 20:51 Tylenol PO 650 mg Q6H PRN Administration Pain, Mild (1-3) Atorvastatin Calcium 10 mg 12/30/18 22:00 01/04/19 21:20 Lipitor PO 10 mg QHS ELY Administration Haloperidol 5 mg 12/29/18 08:36 01/03/19 20:25 Haldol PO 5 mg Q6H PRN Administration Agitation Haloperidol Lactate 5 mg 12/29/18 08:36 Haldol IM Q6H PRN Agitation Lorazepam 1 mg 12/29/18 08:36 01/02/19 21:11 Ativan PO 1 mg Q6H PRN Administration Agitation Lorazepam 1 mg 12/29/18 08:36 Ativan IM Q6H PRN Agitation Melatonin 5 mg 12/30/18 22:00 01/04/19 21:20 Melatonin PO 5 mg QHS ELY Administration Miscellaneous Medication 2.5 mg 12/31/18 20:00 01/05/19 10:55 Letrozole PO 2.5 mg DAILY ELY Administration Sertraline HCl 100 mg 12/30/18 15:00 01/05/19 10:55 Zoloft PO 100 mg QDAY ELY Administration
[2019-01-05] MEDS: MELATONIN 5 MG TAB PO SCH (21:02)
--- NOTE | 2019-01-06 10:14 | Progress Note ---
Subjective Date of service: 01/06/19 Principal diagnosis: Dementia with behavioral disturbance Subjective Comment: Patient is confused, unable to care for self. She is agitated at night and required prn medications. Nursing Report: 06:17: Pt was compliant with her routine meds. Slept for 7 hrs. 2300: Medication effective pt resting comfortably 22:21: Pt in bed trying to climb out. She was assisted to the bathroom x 2 continues to be restless and was observed kneeling and trying to special education kindergarten teacher the bed. Pt is difficult to redirect. Pt is given haldol 5mg im for her continued agitation. 19:19 Pt is observed in the activity room playing with her blanket. She interacts with staff on approach, she is confused but able to verbalize her needs and denies pain. She is a/o to self mood and affect is pleasant but is unpredictable frequently standing and trying to walk independently, needs redirection as gait is unsteady. MSE Orientation: place Affect: depressed, anxious Mood: congruent with affect Thought Process: Disorganized Perceptions: none Speech: paucity Concentration: distractible Motor activity: restless Level of consciousness: alert Memory: Recent Impaired, Remote Impaired Sleep Symptoms: Insomnia Interaction: cooperative Objective - Criteria for Continued Treatment Criteria for Continued Treatment: Improving Level of Functioning, Stablizing Level of Functioning, Improving Emotional/Socia - Objective Observation Participation Level: Minimal Reason(s) For Not Participating: Unable Assessment and Plan - Patient Problems (1) Major 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 Patient will be enrolled in individual and group therapeutic sessions and encouraged to attend. Patient will be provided with a safe and structured environment. Patient's physical health needs will be addressed by the Hospitalist. Social Assessment will be completed and the Mechanical Design Engineer Facilities will work with patient and family to ensure a suitable and safe disposition Medication adjustment will be made as clinically indicated Will increase Melatonin to 10mg qpm and start Risperidone 0.5mg qhs Repeat UA Medications & Allergies - Medications Allergies/Adverse Reactions: Allergies No Known Allergies Allergy (Verified 12/28/18 13:26) Home Medications: Home Medications Medication Instructions Recorded Confirmed Last Taken Type AtorvaSTATin 10 mg PO HS 12/29/18 12/29/18 Unknown History Ciprofloxacin TAB 500 mg PO BID 12/29/18 12/29/18 Unknown History Doxepin [SINEquan] 10 mg PO DAILY MDD unknown 12/29/18 12/29/18 Unknown History Letrozole 2.5 mg PO DAILY 12/29/18 12/29/18 Unknown History Melatonin 3 mg Tablet 3 mg PO HS 12/29/18 12/29/18 Unknown History Sertraline 100 gm PO DAILY 12/29/18 12/29/18 Unknown History Active Medications: Generic Name Dose Route Start Last Admin Trade Name Freq PRN Reason Stop Dose Admin Acetaminophen 650 mg 12/29/18 20:05 12/29/18 20:51 Tylenol PO 650 mg Q6H PRN Administration Pain, Mild (1-3) Atorvastatin Calcium 10 mg 12/30/18 22:00 01/05/19 21:02 Lipitor PO 10 mg QHS ELY Administration Haloperidol 5 mg 12/29/18 08:36 01/03/19 20:25 Haldol PO 5 mg Q6H PRN Administration Agitation Haloperidol Lactate 5 mg 12/29/18 08:36 01/05/19 22:19 Haldol IM 5 mg Q6H PRN Administration Agitation Lorazepam 1 mg 12/29/18 08:36 01/02/19 21:11 Ativan PO 1 mg Q6H PRN Administration Agitation Lorazepam 1 mg 12/29/18 08:36 Ativan IM Q6H PRN Agitation Melatonin 5 mg 12/30/18 22:00 01/05/19 21:02 Melatonin PO 5 mg QHS ELY Administration Miscellaneous Medication 2.5 mg 12/31/18 20:00 01/05/19 10:55 Letrozole PO 2.5 mg DAILY ELY Administration Sertraline HCl 100 mg 12/30/18 15:00 01/05/19 10:55 Zoloft PO 100 mg QDAY ELY Administration
[2019-01-06] MEDS: LETROZOLE 2.5 MG PO SCH (12:37)
[2019-01-06] MEDS: SERTRALINE 100 MG TAB PO SCH (12:37)
[2019-01-06] MEDS: HALOPERIDOL 5 MG TAB PO PRN ×2 (13:58→21:20)
[2019-01-06] MEDS: MELATONIN 5 MG TAB PO SCH (21:20)
--- NOTE | 2019-01-07 08:07 | Progress Note ---
Subjective Date of service: 01/07/19 Principal diagnosis: Dementia with behavioral disturbance Subjective Comment: Patient is confused, unable to care for self. She is agitated at night and requires prn medications. Nursing Report: Patient is alert and oriented x 1. Patient observed to be confused and restless on shift. Patient disoriented and thought she was at home. Urine still needs to be collected will notify oncoming shift. Patient was up in the dayroom calm and cooperative. Pt ate 100% of snack. Pt was assisted to bed, but started exhibiting anxiety and restlessness moving back and forward in the bed and the alarm was sounding. Patient was initially given Haldol 5 mg po prn with her qhs meds but was not effective. Patient after several attempts at redirection patient was given Ativan 1 mg IM which was effective and patient was able to sleep. MSE Orientation: place Affect: depressed, anxious Mood: congruent with affect Thought Process: Disorganized Perceptions: none Speech: paucity Concentration: distractible Motor activity: restless Level of consciousness: alert Memory: Recent Impaired, Remote Impaired Sleep Symptoms: Insomnia Interaction: cooperative Objective - Criteria for Continued Treatment Criteria for Continued Treatment: Improving Level of Functioning, Confronting Denial of Illness, Stablizing Level of Functioning - Objective Observation Participation Level: Minimal Reason(s) For Not Participating: Unable Assessment and Plan - Patient Problems (1) Major 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 Patient will be enrolled in individual and group therapeutic sessions and encouraged to attend. Patient will be provided with a safe and structured environment. Patient's physical health needs will be addressed by the Hospitalist. Social Assessment will be completed and the Jack Machine Operator will work with patient and family to ensure a suitable and safe disposition Medication adjustment will be made as clinically indicated Will add Risperidone 0.5mg bid Awaiting result of UA Medications and Allergies Allergies Allergy/AdvReac Type Severity Reaction Status Date / Time No Known Allergies Allergy Verified 12/28/18 13:26 Home Medications Medication Instructions Recorded Confirmed Last Taken Type AtorvaSTATin 10 mg PO HS 12/29/18 12/29/18 Unknown History Ciprofloxacin TAB 500 mg PO BID 12/29/18 12/29/18 Unknown History Doxepin [SINEquan] 10 mg PO DAILY MDD unknown 12/29/18 12/29/18 Unknown History Letrozole 2.5 mg PO DAILY 12/29/18 12/29/18 Unknown History Melatonin 3 mg Tablet 3 mg PO HS 12/29/18 12/29/18 Unknown History Sertraline 100 gm PO DAILY 12/29/18 12/29/18 Unknown History Active Meds: Active Medications Acetaminophen (Tylenol) 650 mg PO Q6H PRN PRN Reason: Pain, Mild (1-3) Last Admin: 12/29/18 20:51 Dose: 650 mg Documented by: Atorvastatin Calcium (Lipitor) 10 mg PO QHS [facility] Last Admin: 01/06/19 21:21 Dose: 10 mg Documented by: Haloperidol (Haldol) 5 mg PO Q6H PRN PRN Reason: Agitation Last Admin: 01/06/19 21:20 Dose: 5 mg Documented by: Haloperidol Lactate (Haldol) 5 mg IM Q6H PRN PRN Reason: Agitation Last Admin: 01/05/19 22:19 Dose: 5 mg Documented by: Lorazepam (Ativan) 1 mg PO Q6H PRN PRN Reason: Agitation Last Admin: 01/02/19 21:11 Dose: 1 mg Documented by: Lorazepam (Ativan) 1 mg IM Q6H PRN PRN Reason: Agitation Last Admin: 01/06/19 22:24 Dose: 1 mg Documented by: Melatonin (Melatonin) 10 mg PO QHS [facility] Last Admin: 01/06/19 21:20 Dose: 10 mg Documented by: Miscellaneous Medication (Letrozole) 2.5 mg PO DAILY [facility] Last Admin: 01/06/19 12:37 Dose: 2.5 mg Documented by: Sertraline HCl (Zoloft) 100 mg PO QDAY [facility] Last Admin: 01/06/19 12:37 Dose: 100 mg Documented by: Results - Results Labs/Vitals: Laboratory Last Values WBC 3.8 K/mm3 (4.5-11.0) L 12/31/18 08:15 RBC 3.42 M/mm3 (3.65-5.03) L 12/31/18 08:15 Hgb 10.4 gm/dl (10.1-14.3) 12/31/18 08:15 Hct 31.3 % (30.3-42.9) 12/31/18 08:15 MCV 91 fl (79-97) 12/31/18 08:15 MCH 30 pg (28-32) 12/31/18 08:15 MCHC 33 % (30-34) 12/31/18 08:15 RDW 14.3 % (13.2-15.2) 12/31/18 08:15 Plt Count 152 K/mm3 (140-440) 12/31/18 08:15 Sodium 140 mmol/L (137-145) 12/31/18 08:15 Potassium 4.0 mmol/L (3.6-5.0) D 12/31/18 08:15 Chloride 103.7 mmol/L (98-107) 12/31/18 08:15 Carbon Dioxide 26 mmol/L (22-30) 12/31/18 08:15 Anion Gap 14 mmol/L 12/31/18 08:15 BUN 10 mg/dL (7-17) 12/31/18 08:15 Creatinine 0.9 mg/dL (0.7-1.2) 12/31/18 08:15 Estimated GFR > 60 ml/min 12/31/18 08:15 BUN/Creatinine Ratio 11 % 12/31/18 08:15 Glucose 84 mg/dL (65-100) 12/31/18 08:15 POC Glucose 78 (70-105) 01/02/19 06:27 Hemoglobin A1c 5.0 % (4-6) 12/29/18 18:16 Calcium 8.5 mg/dL (8.4-10.2) 12/31/18 08:15 Triglycerides 116 mg/dL (2-149) 12/29/18 18:16 Cholesterol 183 mg/dL (50-199) 12/29/18 18:16 LDL Cholesterol Direct 104 mg/dL (50-130) 12/29/18 18:16 HDL Cholesterol 67 mg/dL (40-59) H 12/29/18 18:16 Cholesterol/HDL Ratio 2.73 % 12/29/18 18:16 Urine Color Yellow (Yellow) 12/30/18 Unknown Urine Turbidity Clear (Clear) 12/30/18 Unknown Urine pH 6.0 (5.0-7.0) 12/30/18 Unknown Ur Specific [place] 1.015 (1.003-1.030) 12/30/18 Unknown Urine Protein <15 mg/dl mg/dL (Negative) 12/30/18 Unknown Urine Glucose (UA) Neg mg/dL (Negative) 12/30/18 Unknown Urine Ketones Neg mg/dL (Negative) 12/30/18 Unknown Urine Blood Neg (Negative) 12/30/18 Unknown Urine Nitrite Neg (Negative) 12/30/18 Unknown Urine Bilirubin Neg (Negative) 12/30/18 Unknown Urine Urobilinogen < 2.0 mg/dL (<2.0) 12/30/18 Unknown Ur Leukocyte Esterase Mod (Negative) 12/30/18 Unknown Urine WBC (Auto) 3.0 /HPF (0.0-6.0) 12/30/18 Unknown Urine RBC (Auto) 2.0 /HPF (0.0-6.0) 12/30/18 Unknown U Epithel Cells (Auto) 1.0 /HPF (0-13.0) 12/30/18 Unknown Urine Mucus Few /HPF 12/30/18 Unknown Last Vital Signs Temp 97.9 F 01/06/19 20:52 Pulse 74 01/06/19 21:48 Resp 18 01/06/19 20:52 BP 133/56 01/06/19 20:52 Pulse Ox 100 01/06/19 20:52
[2019-01-07] MEDS: SERTRALINE 100 MG TAB PO SCH (11:37)
[2019-01-07] MEDS: LETROZOLE 2.5 MG PO SCH (11:37)
[2019-01-07] MEDS ORDERED: LETROZOLE 2.5 MG PO ONE (19:00)
[2019-01-07] MEDS: MELATONIN 5 MG TAB PO SCH (21:10)
--- NOTE | 2019-01-08 08:59 | Progress Note ---
Subjective Date of service: 01/08/19 Principal diagnosis: Dementia with behavioral disturbance Subjective Comment: Patient is confused, unable to care for self. She is sleeping through the night. Dietary intake is improving. She is more cooperative with cares. MSE Orientation: place Affect: depressed, anxious Mood: congruent with affect Thought Process: Disorganized Perceptions: none Speech: paucity Concentration: distractible Motor activity: restless Level of consciousness: alert Memory: Recent Impaired, Remote Impaired Sleep Symptoms: Insomnia Interaction: cooperative Objective - Criteria for Continued Treatment Criteria for Continued Treatment: Improving Level of Functioning, Stablizing Level of Functioning, Improving Emotional/Socia - Objective Observation Participation Level: Minimal Assessment and Plan - Patient Problems (1) Major 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 Patient will be enrolled in individual and group therapeutic sessions and encouraged to attend. Patient will be provided with a safe and structured environment. Patient's physical health needs will be addressed by the Hospitalist. Social Assessment will be completed and the Editorial Writer will work with patient and family to ensure a suitable and safe disposition Medication adjustment will be made as clinically indicated Will add Risperidone 0.5mg bid Awaiting result of UA Medications and Allergies Allergies Allergy/AdvReac Type Severity Reaction Status Date / Time No Known Allergies Allergy Verified 12/28/18 13:26 Home Medications Medication Instructions Recorded Confirmed Last Taken Type AtorvaSTATin 10 mg PO HS 12/29/18 12/29/18 Unknown History Ciprofloxacin TAB 500 mg PO BID 12/29/18 12/29/18 Unknown History Doxepin [SINEquan] 10 mg PO DAILY MDD unknown 12/29/18 12/29/18 Unknown History Letrozole 2.5 mg PO DAILY 12/29/18 12/29/18 Unknown History Melatonin 3 mg Tablet 3 mg PO HS 12/29/18 12/29/18 Unknown History Sertraline 100 gm PO DAILY 12/29/18 12/29/18 Unknown History Active Meds: Active Medications Acetaminophen (Tylenol) 650 mg PO Q6H PRN PRN Reason: Pain, Mild (1-3) Last Admin: 12/29/18 20:51 Dose: 650 mg Documented by: Atorvastatin Calcium (Lipitor) 10 mg PO QHS [facility] Last Admin: 01/07/19 21:10 Dose: 10 mg Documented by: Haloperidol (Haldol) 5 mg PO Q6H PRN PRN Reason: Agitation Last Admin: 01/06/19 21:20 Dose: 5 mg Documented by: Haloperidol Lactate (Haldol) 5 mg IM Q6H PRN PRN Reason: Agitation Last Admin: 01/05/19 22:19 Dose: 5 mg Documented by: Lorazepam (Ativan) 1 mg PO Q6H PRN PRN Reason: Agitation Last Admin: 01/02/19 21:11 Dose: 1 mg Documented by: Lorazepam (Ativan) 1 mg IM Q6H PRN PRN Reason: Agitation Last Admin: 01/06/19 22:24 Dose: 1 mg Documented by: Melatonin (Melatonin) 10 mg PO QHS [facility] Last Admin: 01/07/19 21:10 Dose: 10 mg Documented by: Miscellaneous Medication (Letrozole) 2.5 mg PO DAILY [facility] Last Admin: 01/07/19 11:37 Dose: Not Given Documented by: Sertraline HCl (Zoloft) 100 mg PO QDAY [facility] Last Admin: 01/07/19 11:37 Dose: 100 mg Documented by: Results - Results Labs/Vitals: Laboratory Last Values WBC 3.8 K/mm3 (4.5-11.0) L 12/31/18 08:15 RBC 3.42 M/mm3 (3.65-5.03) L 12/31/18 08:15 Hgb 10.4 gm/dl (10.1-14.3) 12/31/18 08:15 Hct 31.3 % (30.3-42.9) 12/31/18 08:15 MCV 91 fl (79-97) 12/31/18 08:15 MCH 30 pg (28-32) 12/31/18 08:15 MCHC 33 % (30-34) 12/31/18 08:15 RDW 14.3 % (13.2-15.2) 12/31/18 08:15 Plt Count 152 K/mm3 (140-440) 12/31/18 08:15 Sodium 140 mmol/L (137-145) 12/31/18 08:15 Potassium 4.0 mmol/L (3.6-5.0) D 12/31/18 08:15 Chloride 103.7 mmol/L (98-107) 12/31/18 08:15 Carbon Dioxide 26 mmol/L (22-30) 12/31/18 08:15 Anion Gap 14 mmol/L 12/31/18 08:15 BUN 10 mg/dL (7-17) 12/31/18 08:15 Creatinine 0.9 mg/dL (0.7-1.2) 12/31/18 08:15 Estimated GFR > 60 ml/min 12/31/18 08:15 BUN/Creatinine Ratio 11 % 12/31/18 08:15 Glucose 84 mg/dL (65-100) 12/31/18 08:15 POC Glucose 78 (70-105) 01/02/19 06:27 Hemoglobin A1c 5.0 % (4-6) 12/29/18 18:16 Calcium 8.5 mg/dL (8.4-10.2) 12/31/18 08:15 Triglycerides 116 mg/dL (2-149) 12/29/18 18:16 Cholesterol 183 mg/dL (50-199) 12/29/18 18:16 LDL Cholesterol Direct 104 mg/dL (50-130) 12/29/18 18:16 HDL Cholesterol 67 mg/dL (40-59) H 12/29/18 18:16 Cholesterol/HDL Ratio 2.73 % 12/29/18 18:16 Urine Color Yellow (Yellow) 12/30/18 Unknown Urine Turbidity Clear (Clear) 12/30/18 Unknown Urine pH 6.0 (5.0-7.0) 12/30/18 Unknown Ur Specific [place] 1.015 (1.003-1.030) 12/30/18 Unknown Urine Protein <15 mg/dl mg/dL (Negative) 12/30/18 Unknown Urine Glucose (UA) Neg mg/dL (Negative) 12/30/18 Unknown Urine Ketones Neg mg/dL (Negative) 12/30/18 Unknown Urine Blood Neg (Negative) 12/30/18 Unknown Urine Nitrite Neg (Negative) 12/30/18 Unknown Urine Bilirubin Neg (Negative) 12/30/18 Unknown Urine Urobilinogen < 2.0 mg/dL (<2.0) 12/30/18 Unknown Ur Leukocyte Esterase Mod (Negative) 12/30/18 Unknown Urine WBC (Auto) 3.0 /HPF (0.0-6.0) 12/30/18 Unknown Urine RBC (Auto) 2.0 /HPF (0.0-6.0) 12/30/18 Unknown U Epithel Cells (Auto) 1.0 /HPF (0-13.0) 12/30/18 Unknown Urine Mucus Few /HPF 12/30/18 Unknown Last Vital Signs Temp 97.6 F 01/07/19 20:35 Pulse 82 01/07/19 20:35 Resp 18 01/07/19 20:35 BP 127/45 01/07/19 20:35 Pulse Ox 99 01/07/19 20:35
[2019-01-08] MEDS: LETROZOLE 2.5 MG PO SCH (11:07)
[2019-01-08] MEDS: SERTRALINE 100 MG TAB PO SCH (11:08)
--- NOTE | 2019-01-08 12:37 | Progress Note ---
Assessment and Plan Assessment and plan: Patient is a 78 yo woman from a Personal Nursing [facility] with a history of dementia, depression, dyslipidemia and ICH who presented to [facility] ED for combative behavior. She is very confused with labile emotions. She is a poor history due to the confusion. She does not answer most questions, she started crying. She says she lives with her and he doesn't know where she is. The family is at a loss because they have changed facilities 5 times in 1 year per chart. The personal care facility states she can't return because they can't take care of her. Patient was currently taking antibiotics for UTI per chart Acute metabolic encephalopathy: per Cris-psychiatry Hypokalemia: repeat bmp, reviewed Advance Dementia with behavior disorder: here with psych UTI by history: check UA-->negative before Repeat UA History Interval history: I was called by MYRON Avila to re-evaluate patient for UTI. Hospitalist Physical - Physical exam Narrative exam: Gen: WDWN, NAD, Awake, Alert, Orientated x 1 HEENT: NCAT, EOMI, PERRL, OP Clear Neck: supple, no adenopathy, no thyromegaly, no JVD CVS/Heart: RRR, normal S1S2, pulses present bilaterally Chest/Lungs: CTA B, Symmetrical chest expansion, good air entry bilaterally GI/Abdomen: soft, NTND, good bowel sounds, no guarding or rebound /Bladder: no suprapubic tenderness, no CVA or paraspinal tenderness Extermity/Skin: no c/c/e, no obvious rash MSK: FROM x 4 Neuro: CN 2-12 grossly intact, no new focal deficits Psych: calm but confused, started crying - Constitutional Vitals: Temp Pulse Resp BP Pulse Ox 97.6 F 82 18 127/45 99 01/07/19 20:35 01/07/19 20:35 01/07/19 20:35 01/07/19 20:35 01/07/19 20:35 General appearance: Present: no acute distress, well-nourished, disheveled Results - Labs CBC & Chem 7: 12/31/18 08:15 12/31/18 08:15 Labs: Laboratory Last Values WBC 3.8 K/mm3 (4.5-11.0) L 12/31/18 08:15 RBC 3.42 M/mm3 (3.65-5.03) L 12/31/18 08:15 Hgb 10.4 gm/dl (10.1-14.3) 12/31/18 08:15 Hct 31.3 % (30.3-42.9) 12/31/18 08:15 MCV 91 fl (79-97) 12/31/18 08:15 MCH 30 pg (28-32) 12/31/18 08:15 MCHC 33 % (30-34) 12/31/18 08:15 RDW 14.3 % (13.2-15.2) 12/31/18 08:15 Plt Count 152 K/mm3 (140-440) 12/31/18 08:15 Sodium 140 mmol/L (137-145) 12/31/18 08:15 Potassium 4.0 mmol/L (3.6-5.0) D 12/31/18 08:15 Chloride 103.7 mmol/L (98-107) 12/31/18 08:15 Carbon Dioxide 26 mmol/L (22-30) 12/31/18 08:15 Anion Gap 14 mmol/L 12/31/18 08:15 BUN 10 mg/dL (7-17) 12/31/18 08:15 Creatinine 0.9 mg/dL (0.7-1.2) 12/31/18 08:15 Estimated GFR > 60 ml/min 12/31/18 08:15 BUN/Creatinine Ratio 11 % 12/31/18 08:15 Glucose 84 mg/dL (65-100) 12/31/18 08:15 POC Glucose 78 (70-105) 01/02/19 06:27 Hemoglobin A1c 5.0 % (4-6) 12/29/18 18:16 Calcium 8.5 mg/dL (8.4-10.2) 12/31/18 08:15 Triglycerides 116 mg/dL (2-149) 12/29/18 18:16 Cholesterol 183 mg/dL (50-199) 12/29/18 18:16 LDL Cholesterol Direct 104 mg/dL (50-130) 12/29/18 18:16 HDL Cholesterol 67 mg/dL (40-59) H 12/29/18 18:16 Cholesterol/HDL Ratio 2.73 % 12/29/18 18:16 Urine Color Yellow (Yellow) 12/30/18 Unknown Urine Turbidity Clear (Clear) 12/30/18 Unknown Urine pH 6.0 (5.0-7.0) 12/30/18 Unknown Ur Specific [place] 1.015 (1.003-1.030) 12/30/18 Unknown Urine Protein <15 mg/dl mg/dL (Negative) 12/30/18 Unknown Urine Glucose (UA) Neg mg/dL (Negative) 12/30/18 Unknown Urine Ketones Neg mg/dL (Negative) 12/30/18 Unknown Urine Blood Neg (Negative) 12/30/18 Unknown Urine Nitrite Neg (Negative) 12/30/18 Unknown Urine Bilirubin Neg (Negative) 12/30/18 Unknown Urine Urobilinogen < 2.0 mg/dL (<2.0) 12/30/18 Unknown Ur Leukocyte Esterase Mod (Negative) 12/30/18 Unknown Urine WBC (Auto) 3.0 /HPF (0.0-6.0) 12/30/18 Unknown Urine RBC (Auto) 2.0 /HPF (0.0-6.0) 12/30/18 Unknown U Epithel Cells (Auto) 1.0 /HPF (0-13.0) 12/30/18 Unknown Urine Mucus Few /HPF 12/30/18 Unknown Active Medications - Current Medications Current Medications: Generic Name Dose Route Start Last Admin Trade Name Freq PRN Reason Stop Dose Admin Acetaminophen 650 mg 12/29/18 20:05 12/29/18 20:51 Tylenol PO 650 mg Q6H PRN Administration Pain, Mild (1-3) Atorvastatin Calcium 10 mg 12/30/18 22:00 01/07/19 21:10 Lipitor PO 10 mg QHS ELY Administration Haloperidol 5 mg 12/29/18 08:36 01/06/19 21:20 Haldol PO 5 mg Q6H PRN Administration Agitation Haloperidol Lactate 5 mg 12/29/18 08:36 01/05/19 22:19 Haldol IM 5 mg Q6H PRN Administration Agitation Lorazepam 1 mg 12/29/18 08:36 01/02/19 21:11 Ativan PO 1 mg Q6H PRN Administration Agitation Lorazepam 1 mg 12/29/18 08:36 01/06/19 22:24 Ativan IM 1 mg Q6H PRN Administration Agitation Melatonin 10 mg 01/06/19 22:00 01/07/19 21:10 Melatonin PO 10 mg QHS ELY Administration Miscellaneous Medication 2.5 mg 12/31/18 20:00 01/08/19 11:07 Letrozole PO 2.5 mg DAILY ELY Administration Sertraline HCl 100 mg 12/30/18 15:00 01/08/19 11:08 Zoloft PO 100 mg QDAY ELY Administration Nutrition/Malnutrition Assess - Dietary Evaluation Nutrition/Malnutrition Findings: Nutrition Notes Start: 01/03/19 10:07 Freq: Status: Active Protocol: Document 01/03/19 10:07 RS (Rec: 01/03/19 10:57 RS [id number]) Co-Sign 01/03/19 10:07 LM Nutrition Notes Need for Assessment generated from: LOS Initial or Follow up Brief Note Other Pertinent Diagnosis Demenita, depression Current Diet Regular diet Labs/Tests reviewed Pertinent Medications reviewed Height 5 ft Weight 57.17 kg [place] Body Weight (kg) 45.45 BMI 24.6 Intake Prior to Admission Fair Weight Status Appropriate Subjective/Other Information Consult for LOS. Pt reports better than usual appetite and eating 100% of meals. Nurse confirmed pt's eating behavior . No c/o of N/V/D. Burn Absent Trauma Absent GI Symptoms None Food Allergy No Current % PO Good (75-100%) Minimum of two criteria No Is patient on ventilator? No Is Patient Ambulatory and/or Out of Bed Yes REE-([facility]-ambulatory/OOB) [ 1265.160 [id number]] Calculation Used for Recommendations [facility] Additional Notes PRO needs (1-1.2g/day): 57-69g /day Fluid needs: 1mL/kcal Nutrition Intervention Revisit per MD consult or patient Sign Off request:
[2019-01-08] MEDS: HALOPERIDOL 5 MG TAB PO PRN (20:50)
[2019-01-08] MEDS: MELATONIN 5 MG TAB PO SCH (21:13)
[2019-01-09 05:24] LABS: Bilirubin,Urine NEG (Negative); Blood,Urine NEG (Negative); Color,Urine Straw (Yellow); Protein,Urine <15 mg/dL mg/dL (Negative); Urobilinogen,Urine < 2.0 mg/dL (<2.0); WBC,Urine < 1.0 /HPF (0.0-6.0)
--- NOTE | 2019-01-09 09:33 | Progress Note ---
Subjective Date of service: 01/09/19 Principal diagnosis: Dementia with behavioral disturbance Subjective Comment: Patient continues to improve. Per Nursing Notes, she is medication compliant, alert and oriented to person and place, good appetite, calm and cooperative, no agitation, pt slept through the night, no incident. MSE Orientation: A&O X 3 Affect: Normal Mood: congruent with affect Thought Process: Disorganized Perceptions: none Speech: paucity Concentration: distractible Motor activity: Normal Level of consciousness: alert Memory: Recent Impaired, Remote Impaired Interaction: cooperative Objective - Criteria for Continued Treatment Criteria for Continued Treatment: Improving Level of Functioning, Stablizing Level of Functioning, Improving Emotional/Socia - Objective Observation Participation Level: Minimal Assessment and Plan - Patient Problems (1) Major 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 Patient will be enrolled in individual and group therapeutic sessions and encouraged to attend. Patient will be provided with a safe and structured environment. Patient's physical health needs will be addressed by the Hospitalist. Social Assessment will be completed and the Elastic Attacher Chainstitch will work with patient and family to ensure a suitable and safe disposition Medication adjustment will be made as clinically indicated Will continue Risperidone 0.5mg bid Medications and Allergies Allergies Allergy/AdvReac Type Severity Reaction Status Date / Time No Known Allergies Allergy Verified 12/28/18 13:26 Home Medications Medication Instructions Recorded Confirmed Last Taken Type AtorvaSTATin 10 mg PO HS 12/29/18 12/29/18 Unknown History Ciprofloxacin TAB 500 mg PO BID 12/29/18 12/29/18 Unknown History Doxepin [SINEquan] 10 mg PO DAILY MDD unknown 12/29/18 12/29/18 Unknown History Letrozole 2.5 mg PO DAILY 12/29/18 12/29/18 Unknown History Melatonin 3 mg Tablet 3 mg PO HS 12/29/18 12/29/18 Unknown History Sertraline 100 gm PO DAILY 12/29/18 12/29/18 Unknown History Active Meds: Active Medications Acetaminophen (Tylenol) 650 mg PO Q6H PRN PRN Reason: Pain, Mild (1-3) Last Admin: 12/29/18 20:51 Dose: 650 mg Documented by: Atorvastatin Calcium (Lipitor) 10 mg PO QHS [facility] Last Admin: 01/08/19 21:13 Dose: 10 mg Documented by: Haloperidol (Haldol) 5 mg PO Q6H PRN PRN Reason: Agitation Last Admin: 01/08/19 20:50 Dose: 5 mg Documented by: Haloperidol Lactate (Haldol) 5 mg IM Q6H PRN PRN Reason: Agitation Last Admin: 01/05/19 22:19 Dose: 5 mg Documented by: Lorazepam (Ativan) 1 mg PO Q6H PRN PRN Reason: Agitation Last Admin: 01/02/19 21:11 Dose: 1 mg Documented by: Lorazepam (Ativan) 1 mg IM Q6H PRN PRN Reason: Agitation Last Admin: 01/06/19 22:24 Dose: 1 mg Documented by: Melatonin (Melatonin) 10 mg PO QHS [facility] Last Admin: 01/08/19 21:13 Dose: 10 mg Documented by: Miscellaneous Medication (Letrozole) 2.5 mg PO DAILY [facility] Last Admin: 01/08/19 11:07 Dose: 2.5 mg Documented by: Sertraline HCl (Zoloft) 100 mg PO QDAY [facility] Last Admin: 01/08/19 11:08 Dose: 100 mg Documented by: Results - Results Labs/Vitals: Laboratory Last Values WBC 3.8 K/mm3 (4.5-11.0) L 12/31/18 08:15 RBC 3.42 M/mm3 (3.65-5.03) L 12/31/18 08:15 Hgb 10.4 gm/dl (10.1-14.3) 12/31/18 08:15 Hct 31.3 % (30.3-42.9) 12/31/18 08:15 MCV 91 fl (79-97) 12/31/18 08:15 MCH 30 pg (28-32) 12/31/18 08:15 MCHC 33 % (30-34) 12/31/18 08:15 RDW 14.3 % (13.2-15.2) 12/31/18 08:15 Plt Count 152 K/mm3 (140-440) 12/31/18 08:15 Sodium 140 mmol/L (137-145) 12/31/18 08:15 Potassium 4.0 mmol/L (3.6-5.0) D 12/31/18 08:15 Chloride 103.7 mmol/L (98-107) 12/31/18 08:15 Carbon Dioxide 26 mmol/L (22-30) 12/31/18 08:15 Anion Gap 14 mmol/L 12/31/18 08:15 BUN 10 mg/dL (7-17) 12/31/18 08:15 Creatinine 0.9 mg/dL (0.7-1.2) 12/31/18 08:15 Estimated GFR > 60 ml/min 12/31/18 08:15 BUN/Creatinine Ratio 11 % 12/31/18 08:15 Glucose 84 mg/dL (65-100) 12/31/18 08:15 POC Glucose 78 (70-105) 01/02/19 06:27 Hemoglobin A1c 5.0 % (4-6) 12/29/18 18:16 Calcium 8.5 mg/dL (8.4-10.2) 12/31/18 08:15 Triglycerides 116 mg/dL (2-149) 12/29/18 18:16 Cholesterol 183 mg/dL (50-199) 12/29/18 18:16 LDL Cholesterol Direct 104 mg/dL (50-130) 12/29/18 18:16 HDL Cholesterol 67 mg/dL (40-59) H 12/29/18 18:16 Cholesterol/HDL Ratio 2.73 % 12/29/18 18:16 Urine Color Straw (Yellow) 01/08/19 12:37 Urine Turbidity Clear (Clear) 01/08/19 12:37 Urine pH 7.0 (5.0-7.0) 01/08/19 12:37 Ur Specific [place] 1.006 (1.003-1.030) 01/08/19 12:37 Urine Protein <15 mg/dl mg/dL (Negative) 01/08/19 12:37 Urine Glucose (UA) Neg mg/dL (Negative) 01/08/19 12:37 Urine Ketones Neg mg/dL (Negative) 01/08/19 12:37 Urine Blood Neg (Negative) 01/08/19 12:37 Urine Nitrite Neg (Negative) 01/08/19 12:37 Urine Bilirubin Neg (Negative) 01/08/19 12:37 Urine Urobilinogen < 2.0 mg/dL (<2.0) 01/08/19 12:37 Ur Leukocyte Esterase Tr (Negative) 01/08/19 12:37 Urine WBC (Auto) < 1.0 /HPF (0.0-6.0) 01/08/19 12:37 Urine RBC (Auto) 1.0 /HPF (0.0-6.0) 01/08/19 12:37 U Epithel Cells (Auto) 1.0 /HPF (0-13.0) 12/30/18 Unknown Urine Mucus Few /HPF 12/30/18 Unknown Last Vital Signs Temp 98.2 F 01/08/19 22:00 Pulse 76 01/08/19 22:00 Resp 18 01/08/19 22:00 BP 138/75 01/08/19 22:00 Pulse Ox 99 01/08/19 22:00
[2019-01-09] MEDS: SERTRALINE 100 MG TAB PO SCH (10:33)
[2019-01-09] MEDS: LETROZOLE 2.5 MG PO SCH (10:33)
[2019-01-09] MEDS: MELATONIN 5 MG TAB PO SCH (21:08)
[2019-01-09] MEDS: HALOPERIDOL 5 MG TAB PO PRN (21:09)
[2019-01-10] MEDS: SERTRALINE 100 MG TAB PO SCH (09:51)
[2019-01-10] MEDS: LETROZOLE 2.5 MG PO SCH (09:51)
[2019-01-10 10:52] VITALS: BP 102/43
--- NOTE | 2019-01-10 12:22 | Discharge Summary ---
Providers - Providers Date of Admission: 12/29/18 08:00 Date of discharge: 01/10/19 Attending physician: WILLIAM ALEJANDRE MD 12/30/18 08:00 Consult to Physician [CONS] Routine Comment: Consulting Provider: SESAR ATWOOD Physician Instructions: Reason For Exam: H&P AND MEDICAL MGMT Primary care physician: WILLIAM ALEJANDRE MD Hospitalization Reason for admission: Danger to self, Danger to others, Unable to care for self Condition: Stable Hospital course: The patient was provided inpatient psychiatric treatment with safe and supportive environment, group therapy, individual counseling, psychiatric medication, medication adjustment, adverse effect monitor, medical evaluation, medical treatment, social service assessment, family/social support meeting, placement assessment and psycho-education. The patients mood, anxiety, thoughts, stress management skill, cognition, impulse/anger control, motivation, understanding of disease, compliance to treatment and appreciation on family/social support are improved and stabilized. At the time of discharge, the patient had no suicidal ideas, no homicidal ideas, no aggressive thoughts, no endangering behavior and no debilitating adverse effects. Disposition: [id number]/[place]-06 HOME UNDER HOME [facility] Allergies/Adverse Reactions: Allergies No Known Allergies Allergy (Verified 12/28/18 13:26) Vital Signs: Last Vital Signs Temp 98.2 F 01/09/19 19:33 Pulse 74 01/10/19 09:35 Resp 20 01/09/19 19:33 BP 102/43 01/10/19 09:35 Pulse Ox 98 01/10/19 09:35 Last Lab: Laboratory Last Values WBC 3.8 K/mm3 (4.5-11.0) L 12/31/18 08:15 RBC 3.42 M/mm3 (3.65-5.03) L 12/31/18 08:15 Hgb 10.4 gm/dl (10.1-14.3) 12/31/18 08:15 Hct 31.3 % (30.3-42.9) 12/31/18 08:15 MCV 91 fl (79-97) 12/31/18 08:15 MCH 30 pg (28-32) 12/31/18 08:15 MCHC 33 % (30-34) 12/31/18 08:15 RDW 14.3 % (13.2-15.2) 12/31/18 08:15 Plt Count 152 K/mm3 (140-440) 12/31/18 08:15 Sodium 140 mmol/L (137-145) 12/31/18 08:15 Potassium 4.0 mmol/L (3.6-5.0) D 12/31/18 08:15 Chloride 103.7 mmol/L (98-107) 12/31/18 08:15 Carbon Dioxide 26 mmol/L (22-30) 12/31/18 08:15 Anion Gap 14 mmol/L 12/31/18 08:15 BUN 10 mg/dL (7-17) 12/31/18 08:15 Creatinine 0.9 mg/dL (0.7-1.2) 12/31/18 08:15 Estimated GFR > 60 ml/min 12/31/18 08:15 BUN/Creatinine Ratio 11 % 12/31/18 08:15 Glucose 84 mg/dL (65-100) 12/31/18 08:15 POC Glucose 78 (70-105) 01/02/19 06:27 Hemoglobin A1c 5.0 % (4-6) 12/29/18 18:16 Calcium 8.5 mg/dL (8.4-10.2) 12/31/18 08:15 Triglycerides 116 mg/dL (2-149) 12/29/18 18:16 Cholesterol 183 mg/dL (50-199) 12/29/18 18:16 LDL Cholesterol Direct 104 mg/dL (50-130) 12/29/18 18:16 HDL Cholesterol 67 mg/dL (40-59) H 12/29/18 18:16 Cholesterol/HDL Ratio 2.73 % 12/29/18 18:16 Urine Color Straw (Yellow) 01/08/19 12:37 Urine Turbidity Clear (Clear) 01/08/19 12:37 Urine pH 7.0 (5.0-7.0) 01/08/19 12:37 Ur Specific [place] 1.006 (1.003-1.030) 01/08/19 12:37 Urine Protein <15 mg/dl mg/dL (Negative) 01/08/19 12:37 Urine Glucose (UA) Neg mg/dL (Negative) 01/08/19 12:37 Urine Ketones Neg mg/dL (Negative) 01/08/19 12:37 Urine Blood Neg (Negative) 01/08/19 12:37 Urine Nitrite Neg (Negative) 01/08/19 12:37 Urine Bilirubin Neg (Negative) 01/08/19 12:37 Urine Urobilinogen < 2.0 mg/dL (<2.0) 01/08/19 12:37 Ur Leukocyte Esterase Tr (Negative) 01/08/19 12:37 Urine WBC (Auto) < 1.0 /HPF (0.0-6.0) 01/08/19 12:37 Urine RBC (Auto) 1.0 /HPF (0.0-6.0) 01/08/19 12:37 U Epithel Cells (Auto) 1.0 /HPF (0-13.0) 12/30/18 Unknown Urine Mucus Few /HPF 12/30/18 Unknown - Discharge Diagnoses (1) Major neurocognitive disorder due to Alzheimer's disease, with behavioral disturbance Status: Acute Core Measure Documentation - Palliative Care Palliative Care/ Comfort Measures: Not Applicable - Core Measures Any of the following diagnoses?: none Exam - Constitutional Vitals: Temp Pulse Resp BP Pulse Ox 98.2 F 74 20 102/43 98 01/09/19 19:33 01/10/19 09:35 01/09/19 19:33 01/10/19 09:35 01/10/19 09:35 General appearance: Present: no acute distress - EENT Eyes: Present: PERRL, EOM intact ENT: hearing intact, clear oral mucosa - Neck Neck: Present: supple, normal ROM - Respiratory Respiratory effort: normal Plan Activity: advance as tolerated Weight Bearing Status: Weight Bear as Tolerated Care Plan Goals: Maintain good and stable mood Plan of Treatment: Take medications as prescribed and attend appointments Health Concerns: Memory decline Assessment: Dementia Follow up with: WILLIAM ALEJANDRE MD [Primary Care Provider] - 7 Days Prescriptions: Melatonin [Melatonin 5MG TAB] 10 mg PO QHS #30 tablet Sertraline 100 gm PO DAILY #30
== END 2019-01-10 15:23 | disposition home or self-care (01) | DRG 56 ==
LOC: 5A 08:00
PROVIDERS: ADMIT Psychiatry & Neurology Psychiatry; ATTEND Psychiatry & Neurology Psychiatry
DX: G30.8 Other Alzheimer's disease (principal); G93.41 Metabolic encephalopathy; F02.81 Dementia in other diseases classified elsewhere, unspecified severity, with behavioral disturbance; E78.5 Hyperlipidemia, unspecified; F32.9 Major depressive disorder, single episode, unspecified; E87.6 Hypokalemia; Z87.440 Personal history of urinary (tract) infections
CPT/HCPCS: 36415; 70450; 80048; 80061; 80076; 80307; 80320; 81001; 82550; 82553; 82565; 82962; 83036; 85025; 85027; G0378; A9270-GY; G0480; J1630; J2060